=== PATIENT | male | born 1945 | race Caucasian/White ===

== ENCOUNTER 2017-03-06 01:00 | Inpatient (IN) | payer OTHER, MEDICARE ==
[~2017-03-06] VITALS: Ht 185.4 cm; Wt 92.1 kg
[2017-03-06] VITALS (7 sets, daily range): BP systolic 108–151; BP diastolic 56–80
--- NOTE | 2017-03-06 06:15 | EKG ---
[facility] [address] [place] [address] Test Date: 2017-03-06 Test Time: 06:12:43 Pat Name: KALEB WEAVER Department: Room: 202 1 Gender: M Javascript Front End Developer: CECILLE : 1945 Requested By: CORAZON LOVELL Order Number: [id number] Reading MD: Measurements Intervals [place] Rate: 72 P: 34 CA: 152 QRS: 42 QRSD: 162 T: 150 QT: 476 QTc: 523 Interpretive Statements SINUS RHYTHM VENTRICULAR PREMATURE COMPLEX(ES) NON SPECIFIC INTRAVENTRICULAR BLOCK ABNORMAL ECG RI6.01 Unconfirmed report No previous ECG available for comparison
[2017-03-06] MEDS ORDERED: MAGNESIUM SULFATE 2GM 50 ML IV ONE (06:45)
[2017-03-06] MEDS ORDERED: fentaNYL PF VIAL 100 MCG/2 ML VIAL IV PRN (09:00)
[2017-03-06] MEDS ORDERED: ACETAMINOPHEN 325 MG TABLET. PO PRN (09:00)
[2017-03-06] MEDS ORDERED: ONDANSETRON PF 4 MG/2 ML VIAL. IV PRN (09:00)
[2017-03-06] MEDS ORDERED: MULT-246 PO (09:40)
[2017-03-06] MEDS ORDERED: UBID1CAP41 PO (09:40)
[2017-03-06] MEDS ORDERED: CHOL10003 PO (09:40)
[2017-03-06] MEDS ORDERED: TAMS0.4C97 PO (09:41)
[2017-03-06 09:47] LABS: BASO % 0 % (0-3); EOS % 1 % (0-3); HEMATOCRIT 39.8 % (39.0-53.0); HEMOGLOBIN 13.4 g/dL (13.0-17.5); LYMPH # 1.6 x10^3/uL (1.0-4.8); LYMPH % 18 % (24-48); MEAN CORPUSCULAR HEMOGLOBIN 32 pg (25-35); MEAN CORPUSCULAR HGB CONC 34 g/dL (31-37); MEAN CORPUSCULAR VOLUME 94 fL (79-100); MONO % 11 % (0-9); NEUT % 70 % (31-73); PLATELET COUNT 353 x10^3/uL (140-400); RED BLOOD COUNT 4.21 x10^6/uL (4.30-5.70); RED CELL DISTRIBUTION WIDTH 14.6 % (11.5-14.5); WHITE BLOOD COUNT 9.3 x10^3/uL (4.0-11.0)
[2017-03-06 09:56] LABS: CALCIUM 8.6 mg/dL (8.5-10.1); CREATININE 1.2 mg/dL (0.7-1.3); GFR 59.3; MAGNESIUM 2.5 mg/dL (1.8-2.4); POTASSIUM 4.1 mmol/L (3.5-5.1)
[2017-03-06] MEDS: LISINOPRIL 5 MG TABLET. PO SCH (10:00)
--- NOTE | 2017-03-06 10:17 | CONS ---
DATE OF CONSULTATION: 03/06/2017 DATE OF SERVICE: 03/06/2017 REASON FOR CONSULTATION: Dyspnea. HISTORY OF PRESENT ILLNESS: The patient is a 71-year-old gentleman without any significant past medical history who presents to the hospital in the setting of progressive dyspnea over the course of the last 6 months or so. In speaking with his , she reports that he had some dyspnea when they went to [place] several weeks ago. In speaking with the patient, he reports that over the course of the last 6 months, he has had aggressive decline in functional capacity and basically describes NYHA class 2-3 symptoms at baseline. He denies any associated palpitations, orthopnea, PND or lower extremity edema. He has not had any exertional angina or rest angina. He denies any prior cardiovascular interventions or evaluations. He was evaluated by his PCP and sent to Pulmonary and had an echocardiogram performed which revealed significant LV systolic dysfunction and he is yet to follow up with them at this time. PAST MEDICAL HISTORY: 1. Benign prostatic hypertrophy. 2. Chronic obstructive pulmonary disease (question). SOCIAL HISTORY: The patient is . He is a former . Currently, he works in the [employer] department at the [employer]. Denies any alcohol, tobacco or illicit drug use. FAMILY HISTORY: Noncontributory. REVIEW OF SYSTEMS: Negative for 10 out of 14 systems reviewed, unless otherwise mentioned above in HPI. ALLERGIES: MORPHINE. CURRENT CARDIOVASCULAR MEDICATIONS: None. PHYSICAL EXAMINATION: VITAL SIGNS: Afebrile, respiratory rate 14, blood pressure 108/52, pulse 73. GENERAL: He is alert and oriented, in no acute distress. HEAD AND NECK: Unremarkable. HEART: Regular rate and rhythm without any murmurs, rubs or gallops. LUNGS: Clear to auscultation bilaterally anteriorly. ABDOMEN: Soft, nontender, nondistended. EXTREMITIES: Without any clubbing, cyanosis or edema. 2+ radial and dorsalis pedis pulses. NEUROLOGIC: No focal deficits. MUSCULOSKELETAL: No trauma. LABORATORY DATA: EKG reveals sinus rhythm with left bundle branch block and occasional PVCs. Telemetry reveals nonsustained ventricular tachycardia and/or PAT with aberrancy. Cardiac enzymes are minimally elevated. Echocardiogram demonstrates significant LV systolic dysfunction with ejection fraction of 20% with anterior wall akinesis in aneurysmal segments. IMPRESSION: 1. Ischemic cardiomyopathy with likely prior LAD territory infarct. 2. Dyspnea and acute systolic heart failure. RECOMMENDATIONS: 1. Plan for cardiac catheterization tomorrow. 2. Start low dose aspirin and initiate on low dose MARGARET inhibitor therapy as tolerated. Consider beta phil upon discharge on an outpatient basis. 3. Nstemi - started statin therapy and Hep gtt. Continue serial enzymes. He will also need likely a temporary defibrillator in the form of a LifeVest due to his nonsustained VT episodes while admitted to the hospital. We will readdress his goals of care as at this present time, the patient and his wish to be DNR and therefore a defibrillator may not be appropriate from a fdc perspective with their goals of care. KAYODE ORTIZ MD DR: YAYA/mervat JOB#: [id number] / [id number] MERISSA
[2017-03-06] MEDS ORDERED: HEPARIN for IV BOLUS 10,000 UNIT/10 ML VIAL. IV PRN (10:30)
[2017-03-06] MEDS ORDERED: ANTI-COAG MONITOR BY PHARMACY. MC PRN (11:00)
--- NOTE | 2017-03-06 11:08 | PDOC1 ---
History and Physical Date of Admission Date of Admission DATE: 03/06/17 TIME: 11:02 Identification/Chief Complaint Chief Complaint soa Problems: Source Source: Caregiver, Chart review, Patient History of Present Illness History of Present Illness 71 y.o male who has pretty good ambulation given stated age, only past medical hx is prostate issues, was filling up a gas tank or doing something exertional last night at home (lives at home with ), then soa, severe enough had to go to [facility], Maybe some dizziness, no cp, denies diaphoresis, NO known CAD. NOn smoker, non drinker, clean lifestyle, Trop second set, just called in 15, Cards plans of cardiac cath jules, heparin gtt today, Pt looks comfortable, EKG no STEMI, denies CP, ate breakfast 100% Creat 1,3 at [facility] all labs ok Past Medical History Renal/: Benign prostatic enlarg. Past Surgical History Past Surgical History: No pertinent history Family History Family History: Hypertension Social History Smoke: No ALCOHOL: none Drugs: None Current Medications Current Medications Current Medications Magnesium Sulfate/ Dextrose 50 ml @ 25 mls/hr 1X ONCE IV Last administered on 03/06/17t 06:45; Start 03/06/17 at 06:45; Stop 03/06/17 at 08:44; Status DC Ondansetron HCl (Zofran) 4 mg PRN Q6HRS PRN IV NAUSEA/VOMITING; Start 03/06/17 at 09:00 Acetaminophen (Tylenol) 650 mg PRN Q6HRS PRN PO pain; Start 03/06/17 at 09:00 Fentanyl Citrate (Fentanyl 2ml Vial) 25 mcg PRN Q2HR PRN IV PAIN; Start at 09:00 Aspirin (Ecotrin) 81 mg DAILYWBKFT PO ; Start 03/06/17 at 10:00 Lisinopril (Prinivil) 5 mg DAILY PO ; Start 03/06/17 at 10:00 Heparin Sodium/ Dextrose 500 ml @ 0 mls/hr CONT PRN IV SEE I/O RECORD; Start at 10:30 Heparin Sodium (Porcine) (Heparin Sodium) 2,350 unit PRN Q6HRS PRN IV FOR UFH LEVEL LESS THAN 0.2; Start 03/06/17 at 10:30 Atorvastatin Calcium (Lipitor) 40 mg QHS PO ; Start 03/06/17 at 21:00 Info (Anti-Coagulation Monitoring By Pharmacy) 1 each PRN DAILY PRN MC SEE COMMENTS; Start 03/06/17 at 11:00 Active Scripts Active Reported Flomax (Tamsulosin Hcl) 0.4 Mg Cap.er.24h 0.4 Mg PO DAILY Multi-Vitamin Daily (Multivitamin) 1 Each Tablet 1 Each PO Vitamin D3 (Cholecalciferol (Vitamin D3)) 1,000 Unit Tablet 1,000 Unit PO Co Q-10 100 Mg Softgel (Ubidecarenone/Vit E Acetate) 1 Each Capsule 1 Each PO Allergies Allergies: Coded Allergies: morphine (Verified Allergy, Unknown, 03/06/17) ROS Review of System denies, just SOA on HPI Physical Exam General: Alert, Oriented X3, Cooperative, No acute distress HEENT: Atraumatic, PERRLA Lungs: Clear to auscultation, Normal air movement Heart: S1S2, RRR, no thrills, no rubs, no gallops Cardiovascular: S1, S2 Abdomen: Normal bowel sounds, Soft, No tenderness, No hepatosplenomegaly, No masses Male Genitals Exam: normal genitalia, normal prostate Rectal Exam: not examined PELVIC: Nml ext genitalia Extremities: No clubbing, No cyanosis, No edema, Normal pulses, No tenderness/ swelling Skin: No rashes, No breakdown, No significant lesion Neuro: Normal gait, Normal speech, Strength at 5/5 X4 ext, Normal tone, Sensation intact, Cranial nerves 3-12 NL, Reflexes 2+ Psych/Mental Status: Mental status NL, Mood NL Vitals Vitals Vital Signs Date Time Temp Pulse Resp B/P (MAP) Pulse Ox O2 Delivery O2 Flow Rate FiO2 03/06/17 10:39 98.1 79 20 111/57 (75) 97 Room Air 98.1 Labs Labs Laboratory Tests Test 03/06/17 08:40 White Blood Count 9.3 x10^3/uL (4.0-11.0) Red Blood Count 4.21 x10^6/uL (4.30-5.70) Hemoglobin 13.4 g/dL (13.0-17.5) Hematocrit 39.8 % (39.0-53.0) Mean Corpuscular Volume 94 fL (79-100) Mean Corpuscular Hemoglobin 32 pg (25-35) Mean Corpuscular Hemoglobin Concent 34 g/dL (31-37) Red Cell Distribution Width 14.6 % (11.5-14.5) Platelet Count 353 x10^3/uL (140-400) Neutrophils (%) (Auto) 70 % (31-73) Lymphocytes (%) (Auto) 18 % (24-48) Monocytes (%) (Auto) 11 % (0-9) Eosinophils (%) (Auto) 1 % (0-3) Basophils (%) (Auto) 0 % (0-3) Neutrophils # (Auto) 6.5 x10^3uL (1.8-7.7) Lymphocytes # (Auto) 1.6 x10^3/uL (1.0-4.8) Monocytes # (Auto) 1.0 x10^3/uL (0.0-1.1) Eosinophils # (Auto) 0.1 x10^3/uL (0.0-0.7) Basophils # (Auto) 0.0 x10^3/uL (0.0-0.2) Sodium Level 142 mmol/L (136-145) Potassium Level 4.1 mmol/L (3.5-5.1) Chloride Level 105 mmol/L (98-107) Carbon Dioxide Level 27 mmol/L (21-32) Anion Gap 10 (6-14) Blood Urea Nitrogen 13 mg/dL (8-26) Creatinine 1.2 mg/dL (0.7-1.3) Estimated GFR (Cockcroft-Gault) 59.3 Glucose Level 95 mg/dL (70-99) Calcium Level 8.6 mg/dL (8.5-10.1) Magnesium Level 2.5 mg/dL (1.8-2.4) Troponin I Quantitative 15.209 ng/mL (0.000-0.055) Thyroid Stimulating Hormone (TSH) 1.165 uIU/mL (0.358-3.74) Laboratory Tests Test 03/06/17 08:40 White Blood Count 9.3 x10^3/uL (4.0-11.0) Red Blood Count 4.21 x10^6/uL (4.30-5.70) Hemoglobin 13.4 g/dL (13.0-17.5) Hematocrit 39.8 % (39.0-53.0) Mean Corpuscular Volume 94 fL (79-100) Mean Corpuscular Hemoglobin 32 pg (25-35) Mean Corpuscular Hemoglobin Concent 34 g/dL (31-37) Red Cell Distribution Width 14.6 % (11.5-14.5) Platelet Count 353 x10^3/uL (140-400) Neutrophils (%) (Auto) 70 % (31-73) Lymphocytes (%) (Auto) 18 % (24-48) Monocytes (%) (Auto) 11 % (0-9) Eosinophils (%) (Auto) 1 % (0-3) Basophils (%) (Auto) 0 % (0-3) Neutrophils # (Auto) 6.5 x10^3uL (1.8-7.7) Lymphocytes # (Auto) 1.6 x10^3/uL (1.0-4.8) Monocytes # (Auto) 1.0 x10^3/uL (0.0-1.1) Eosinophils # (Auto) 0.1 x10^3/uL (0.0-0.7) Basophils # (Auto) 0.0 x10^3/uL (0.0-0.2) Sodium Level 142 mmol/L (136-145) Potassium Level 4.1 mmol/L (3.5-5.1) Chloride Level 105 mmol/L (98-107) Carbon Dioxide Level 27 mmol/L (21-32) Anion Gap 10 (6-14) Blood Urea Nitrogen 13 mg/dL (8-26) Creatinine 1.2 mg/dL (0.7-1.3) Estimated GFR (Cockcroft-Gault) 59.3 Glucose Level 95 mg/dL (70-99) Calcium Level 8.6 mg/dL (8.5-10.1) Magnesium Level 2.5 mg/dL (1.8-2.4) Troponin I Quantitative 15.209 ng/mL (0.000-0.055) Thyroid Stimulating Hormone (TSH) 1.165 uIU/mL (0.358-3.74) VTE Prophylaxis Ordered VTE Prophylaxis Devices: Yes VTE Pharmacological Prophylaxi: Yes Assessment/Plan Assessment/Plan 1. NSTEMI 2. BPH 3. Geriatric 4. BENJAMIN PLAN: Admit CVC IVF x 1 L in prep for LHC jules (creat 1,3) Rpt Trops BMP jules Heparin gtt ACS protocol PARK Stool softener NPO post MN Dw pt and RN ALKA Nicole MD Mar 06, 2017 11:08
[2017-03-06] MEDS ORDERED: IV NORMAL SALINE 1000ML BAG 1,000 ML IV ONE (11:15)
[2017-03-06] MEDS ORDERED: NITROGLYCERIN SUBLINGUAL 0.4 MG BOTTLE OF 25. SL PRN (11:15)
[2017-03-06 11:32] LABS: INR 1.2 (0.8-1.1); PROTHROMBIN TIME PATIENT 14.5 SEC (11.7-14.0)
[2017-03-06] MEDS ORDERED: TAMSULOSIN 0.4 MG CAP.ER.24H. PO SCH (12:00)
[2017-03-06] MEDS: MULTIVITAMIN with MINERAL TABLET. PO SCH (12:00)
[2017-03-06] MEDS: CHOLECALCIFEROL (VITAMIN D3) 1,000 UNIT TABLET PO SCH (12:00)
[2017-03-06] MEDS: ASPIRIN ENTERIC COATED 81 MG TABLET.DR. PO SCH (12:00)
[2017-03-06] MEDS: DOCUSATE SODIUM 100 MG CAPSULE. PO SCH (12:00)
[2017-03-06] MEDS: HEPARIN 25,000UTS/500ML PREMIX 500 ML IV PRN (12:03)
[2017-03-06 16:56] LABS: CKMB MASS 60.6 ng/mL (0.0-3.6)
[2017-03-06] MEDS: TAMSULOSIN 0.4 MG CAP.ER.24H. PO SCH (20:02)
[2017-03-06] MEDS: ATORVASTATIN CALCIUM 40 MG TABLET. PO SCH (20:03)
[2017-03-07] VITALS (13 sets, daily range): BP systolic 105–147; BP diastolic 59–70
[2017-03-07 04:25] LABS: HEMATOCRIT 38.4 % (39.0-53.0); HEMOGLOBIN 12.7 g/dL (13.0-17.5); RED CELL DISTRIBUTION WIDTH 14.9 % (11.5-14.5); WHITE BLOOD COUNT 8.6 x10^3/uL (4.0-11.0)
[2017-03-07 04:48] LABS: CREATININE 1.2 mg/dL (0.7-1.3); GFR 59.3; POTASSIUM 3.5 mmol/L (3.5-5.1)
[2017-03-07 04:52] LABS: CHOLESTEROL/HDL RATIO 2.7
[2017-03-07] MEDS: ASPIRIN ENTERIC COATED 81 MG TABLET.DR. PO SCH (08:52)
[2017-03-07] MEDS: HEPARIN 25,000UTS/500ML PREMIX 500 ML IV PRN (08:58)
[2017-03-07] MEDS: DOCUSATE SODIUM 100 MG CAPSULE. PO SCH (09:00)
[2017-03-07] MEDS: CHOLECALCIFEROL (VITAMIN D3) 1,000 UNIT TABLET PO SCH (09:00)
[2017-03-07] MEDS: MULTIVITAMIN with MINERAL TABLET. PO SCH (09:00)
[2017-03-07] MEDS: LISINOPRIL 5 MG TABLET. PO SCH (09:00)
--- NOTE | 2017-03-07 09:45 | PDOC ---
PROGRESS NOTES Chief Complaint Chief Complaint Assessment/Plan 1. NSTEMI 2. BPH 3. Geriatric 4. BENJAMIN History of Present Illness History of Present Illness Trop peaks at 20 today On heparin gtt NO CP, but some mild SOA NPO, planned for cardiac cath later Clean lifestyle, only BPH, no personal hx CAD PLAN: [facility] later Follow cards recs Allergic to morphine Stool softener on Vitals Vitals Vital Signs Date Time Temp Pulse Resp B/P (MAP) Pulse Ox O2 Delivery O2 Flow Rate FiO2 03/07/17 06:37 98.2 66 16 105/59 (74) 95 Nasal Cannula 2.0 98.2 Physical Exam General: Alert, Oriented X3, Cooperative, No acute distress Abdomen: Normal bowel sounds, Soft, No tenderness, No hepatosplenomegaly, No masses Extremities: No clubbing, No cyanosis, No edema, Normal pulses, No tenderness/ swelling Skin: No rashes, No breakdown, No significant lesion Labs LABS Laboratory Tests Test 03/06/17 10:24 03/06/17 10:30 03/06/17 11:05 03/06/17 16:00 Prothrombin Time 14.5 SEC (11.7-14.0) Prothromb Time International Ratio 1.2 (0.8-1.1) Activated Partial Thromboplast Time 36 SEC (24-38) Troponin I Quantitative 18.299 ng/mL (0.000-0.055) 20.284 ng/mL (0.000-0.055) Creatine Kinase 390 U/L (39-308) Creatine Kinase MB (Mass) 60.6 ng/mL (0.0-3.6) Creatine Kinase MB Relative Index 15.5 % (0-4) Test 03/06/17 18:10 03/07/17 01:15 03/07/17 03:45 03/07/17 07:10 Heparin Anti-Xa Act, Unfractionated 0.22 IU/mL (0.30-0.70) 0.34 IU/mL (0.30-0.70) 0.33 IU/mL (0.30-0.70) White Blood Count 8.6 x10^3/uL (4.0-11.0) Red Blood Count 4.00 x10^6/uL (4.30-5.70) Hemoglobin 12.7 g/dL (13.0-17.5) Hematocrit 38.4 % (39.0-53.0) Mean Corpuscular Volume 96 fL (79-100) Mean Corpuscular Hemoglobin 32 pg (25-35) Mean Corpuscular Hemoglobin Concent 33 g/dL (31-37) Red Cell Distribution Width 14.9 % (11.5-14.5) Platelet Count 320 x10^3/uL (140-400) Sodium Level 141 mmol/L (136-145) Potassium Level 3.5 mmol/L (3.5-5.1) Chloride Level 106 mmol/L (98-107) Carbon Dioxide Level 27 mmol/L (21-32) Anion Gap 8 (6-14) Blood Urea Nitrogen 12 mg/dL (8-26) Creatinine 1.2 mg/dL (0.7-1.3) Estimated GFR (Cockcroft-Gault) 59.3 Glucose Level 92 mg/dL (70-99) Calcium Level 8.0 mg/dL (8.5-10.1) Triglycerides Level 28 mg/dL (0-150) Cholesterol Level 122 mg/dL (0-200) LDL Cholesterol, Calculated 70 mg/dL (0-100) VLDL Cholesterol, Calculated 6 mg/dL (0-40) Non-HDL Cholesterol Calculated 76 mg/dL (0-129) HDL Cholesterol 46 mg/dL (40-60) Cholesterol/HDL Ratio 2.7 Review of Systems Review of Systems SOA, no CP Comment Review of Relevant I have reviewed the following items kimberly (where applicable) has been applied. Labs Laboratory Tests Test 03/06/17 08:40 03/06/17 10:24 03/06/17 10:30 03/06/17 11:05 White Blood Count 9.3 x10^3/uL (4.0-11.0) Red Blood Count 4.21 x10^6/uL (4.30-5.70) Hemoglobin 13.4 g/dL (13.0-17.5) Hematocrit 39.8 % (39.0-53.0) Mean Corpuscular Volume 94 fL (79-100) Mean Corpuscular Hemoglobin 32 pg (25-35) Mean Corpuscular Hemoglobin Concent 34 g/dL (31-37) Red Cell Distribution Width 14.6 % (11.5-14.5) Platelet Count 353 x10^3/uL (140-400) Neutrophils (%) (Auto) 70 % (31-73) Lymphocytes (%) (Auto) 18 % (24-48) Monocytes (%) (Auto) 11 % (0-9) Eosinophils (%) (Auto) 1 % (0-3) Basophils (%) (Auto) 0 % (0-3) Neutrophils # (Auto) 6.5 x10^3uL (1.8-7.7) Lymphocytes # (Auto) 1.6 x10^3/uL (1.0-4.8) Monocytes # (Auto) 1.0 x10^3/uL (0.0-1.1) Eosinophils # (Auto) 0.1 x10^3/uL (0.0-0.7) Basophils # (Auto) 0.0 x10^3/uL (0.0-0.2) Sodium Level 142 mmol/L (136-145) Potassium Level 4.1 mmol/L (3.5-5.1) Chloride Level 105 mmol/L (98-107) Carbon Dioxide Level 27 mmol/L (21-32) Anion Gap 10 (6-14) Blood Urea Nitrogen 13 mg/dL (8-26) Creatinine 1.2 mg/dL (0.7-1.3) Estimated GFR (Cockcroft-Gault) 59.3 Glucose Level 95 mg/dL (70-99) Calcium Level 8.6 mg/dL (8.5-10.1) Magnesium Level 2.5 mg/dL (1.8-2.4) Troponin I Quantitative 15.209 ng/mL (0.000-0.055) 18.299 ng/mL (0.000-0.055) Thyroid Stimulating Hormone (TSH) 1.165 uIU/mL (0.358-3.74) Prothrombin Time 14.5 SEC (11.7-14.0) Prothromb Time International Ratio 1.2 (0.8-1.1) Activated Partial Thromboplast Time 36 SEC (24-38) Test 03/06/17 16:00 03/06/17 18:10 03/07/17 01:15 03/07/17 03:45 Creatine Kinase 390 U/L (39-308) Creatine Kinase MB (Mass) 60.6 ng/mL (0.0-3.6) Creatine Kinase MB Relative Index 15.5 % (0-4) Troponin I Quantitative 20.284 ng/mL (0.000-0.055) Heparin Anti-Xa Act, Unfractionated 0.22 IU/mL (0.30-0.70) 0.34 IU/mL (0.30-0.70) White Blood Count 8.6 x10^3/uL (4.0-11.0) Red Blood Count 4.00 x10^6/uL (4.30-5.70) Hemoglobin 12.7 g/dL (13.0-17.5) Hematocrit 38.4 % (39.0-53.0) Mean Corpuscular Volume 96 fL (79-100) Mean Corpuscular Hemoglobin 32 pg (25-35) Mean Corpuscular Hemoglobin Concent 33 g/dL (31-37) Red Cell Distribution Width 14.9 % (11.5-14.5) Platelet Count 320 x10^3/uL (140-400) Sodium Level 141 mmol/L (136-145) Potassium Level 3.5 mmol/L (3.5-5.1) Chloride Level 106 mmol/L (98-107) Carbon Dioxide Level 27 mmol/L (21-32) Anion Gap 8 (6-14) Blood Urea Nitrogen 12 mg/dL (8-26) Creatinine 1.2 mg/dL (0.7-1.3) Estimated GFR (Cockcroft-Gault) 59.3 Glucose Level 92 mg/dL (70-99) Calcium Level 8.0 mg/dL (8.5-10.1) Triglycerides Level 28 mg/dL (0-150) Cholesterol Level 122 mg/dL (0-200) LDL Cholesterol, Calculated 70 mg/dL (0-100) VLDL Cholesterol, Calculated 6 mg/dL (0-40) Non-HDL Cholesterol Calculated 76 mg/dL (0-129) HDL Cholesterol 46 mg/dL (40-60) Cholesterol/HDL Ratio 2.7 Test 03/07/17 07:10 Heparin Anti-Xa Act, Unfractionated 0.33 IU/mL (0.30-0.70) Laboratory Tests Test 03/06/17 10:24 03/06/17 10:30 03/06/17 11:05 03/06/17 16:00 Prothrombin Time 14.5 SEC (11.7-14.0) Prothromb Time International Ratio 1.2 (0.8-1.1) Activated Partial Thromboplast Time 36 SEC (24-38) Troponin I Quantitative 18.299 ng/mL (0.000-0.055) 20.284 ng/mL (0.000-0.055) Creatine Kinase 390 U/L (39-308) Creatine Kinase MB (Mass) 60.6 ng/mL (0.0-3.6) Creatine Kinase MB Relative Index 15.5 % (0-4) Test 03/06/17 18:10 03/07/17 01:15 03/07/17 03:45 03/07/17 07:10 Heparin Anti-Xa Act, Unfractionated 0.22 IU/mL (0.30-0.70) 0.34 IU/mL (0.30-0.70) 0.33 IU/mL (0.30-0.70) White Blood Count 8.6 x10^3/uL (4.0-11.0) Red Blood Count 4.00 x10^6/uL (4.30-5.70) Hemoglobin 12.7 g/dL (13.0-17.5) Hematocrit 38.4 % (39.0-53.0) Mean Corpuscular Volume 96 fL (79-100) Mean Corpuscular Hemoglobin 32 pg (25-35) Mean Corpuscular Hemoglobin Concent 33 g/dL (31-37) Red Cell Distribution Width 14.9 % (11.5-14.5) Platelet Count 320 x10^3/uL (140-400) Sodium Level 141 mmol/L (136-145) Potassium Level 3.5 mmol/L (3.5-5.1) Chloride Level 106 mmol/L (98-107) Carbon Dioxide Level 27 mmol/L (21-32) Anion Gap 8 (6-14) Blood Urea Nitrogen 12 mg/dL (8-26) Creatinine 1.2 mg/dL (0.7-1.3) Estimated GFR (Cockcroft-Gault) 59.3 Glucose Level 92 mg/dL (70-99) Calcium Level 8.0 mg/dL (8.5-10.1) Triglycerides Level 28 mg/dL (0-150) Cholesterol Level 122 mg/dL (0-200) LDL Cholesterol, Calculated 70 mg/dL (0-100) VLDL Cholesterol, Calculated 6 mg/dL (0-40) Non-HDL Cholesterol Calculated 76 mg/dL (0-129) HDL Cholesterol 46 mg/dL (40-60) Cholesterol/HDL Ratio 2.7 Medications Current Medications Magnesium Sulfate/ Dextrose 50 ml @ 25 mls/hr 1X ONCE IV Last administered on 03/06/17 06:45; Start 03/06/17 at 06:45; Stop 03/06/17 at 08:44; Status DC Ondansetron HCl (Zofran) 4 mg PRN Q6HRS PRN IV NAUSEA/VOMITING; Start 03/06/17 at 09:00 Acetaminophen (Tylenol) 650 mg PRN Q6HRS PRN PO pain; Start 03/06/17 at 09:00 Fentanyl Citrate (Fentanyl 2ml Vial) 25 mcg PRN Q2HR PRN IV PAIN; Start at 09:00 Aspirin (Ecotrin) 81 mg DAILYWBKFT PO Last administered on 03/07/17 08:52; Start 03/06/17 at 10:00 Lisinopril (Prinivil) 5 mg DAILY PO ; Start 03/06/17 at 10:00 Heparin Sodium/ Dextrose 500 ml @ 0 mls/hr CONT PRN IV SEE I/O RECORD Last administered on 03/07/17 08:58; Start 03/06/17 at 10:30 Heparin Sodium (Porcine) (Heparin Sodium) 2,350 unit PRN Q6HRS PRN IV FOR UFH LEVEL LESS THAN 0.2; Start 03/06/17 at 10:30 Atorvastatin Calcium (Lipitor) 40 mg QHS PO Last administered on 03/06/17 20: 03; Start 03/06/17 at 21:00 Info (Anti-Coagulation Monitoring By Pharmacy) 1 each PRN DAILY PRN MC SEE COMMENTS; Start 03/06/17 at 11:00 Vitamin D (Vitamin D3) 1,000 unit DAILY PO Last administered on 03/06/17 12:00 ; Start 03/06/17 at 12:00 Tamsulosin HCl (Flomax) 0.4 mg DAILY PO ; Start 03/06/17 at 12:00; Stop at 12:10; Status DC Multivitamins (Thera M Plus) 1 tab DAILY PO Last administered on 03/06/17 12: 00; Start 03/06/17 at 12:00 Nitroglycerin (Nitrostat) 0.4 mg PRN Q5MIN PRN SL CHEST PAIN; Start 03/06/17 at 11:15 Docusate Sodium (Colace) 100 mg DAILY PO ; Start 03/06/17 at 12:00 Sodium Chloride 1,000 ml @ 100 mls/hr 1X ONCE IV Last administered on 12:00; Start 03/06/17 at 11:15; Stop 03/06/17 at 21:14; Status DC Tamsulosin HCl (Flomax) 0.4 mg HS PO Last administered on 03/06/17 20:02; Start 03/06/17 at 21:00 Active Scripts Active Reported Flomax (Tamsulosin Hcl) 0.4 Mg Cap.er.24h 0.4 Mg PO DAILY Multi-Vitamin Daily (Multivitamin) 1 Each Tablet 1 Each PO Vitamin D3 (Cholecalciferol (Vitamin D3)) 1,000 Unit Tablet 1,000 Unit PO Co Q-10 100 Mg Softgel (Ubidecarenone/Vit E Acetate) 1 Each Capsule 1 Each PO Vitals/I & O Vital Sign - Last 24 Hours 03/06/17 03/06/17 03/06/17 03/06/17 10:39 14:52 19:35 20:00 Temp 98.1 98.0 98.4 98.1 98.0 98.4 Pulse 79 74 75 Resp 20 19 18 B/P (MAP) 111/57 (75) 111/59 (76) 128/71 (90) Pulse Ox 97 93 O2 Delivery Room Air Room Air Room Air Room Air 03/06/17 03/06/17 03/07/17 03/07/17 21:18 22:34 02:45 06:37 Temp 97.7 98.4 98.2 97.7 98.4 98.2 Pulse 72 73 66 Resp 16 16 16 B/P (MAP) 113/57 (75) 115/59 (77) 105/59 (74) Pulse Ox 97 90 95 O2 Delivery Room Air Room Air Room Air Nasal Cannula O2 Flow Rate 2.0 ALKA ELLIS MD Mar 07, 2017 09:45
[2017-03-07] MEDS ORDERED: HEPARIN for ARTERIAL LINE 1,500 ML ONE (14:01)
[2017-03-07] MEDS ORDERED: IOHEXOL 300 MG/ML 100ML VIAL. ONE (14:01)
[2017-03-07] MEDS ORDERED: LIDOCAINE 2% 20 ML VIAL. ONE (14:01)
[2017-03-07] MEDS ORDERED: MIDAZOLAM HCL/PF 2 MG/2 ML VIAL. ONE (14:54)
[2017-03-07] MEDS ORDERED: VERAPAMIL 5 MG/2 ML VIAL. ONE (14:54)
[2017-03-07] MEDS ORDERED: NITROGLYCERIN 200 MCG/2 ML SYRINGE FOR CATH/VASC LAB. ONE (14:56)
[2017-03-07] MEDS ORDERED: TIROFIBAN 12.5MG -0.9% NS 250 ML IV ONE (15:23)
[2017-03-07] MEDS ORDERED: HEPARIN for IV BOLUS 10,000 UNIT/10 ML VIAL. IV ONE (15:30)
[2017-03-07] MEDS ORDERED: LIDOCAINE 2% 20 ML VIAL. IJ ONE (15:30)
[2017-03-07] MEDS ORDERED: VERAPAMIL 5 MG/2 ML VIAL. IART ONE (15:30)
[2017-03-07] MEDS ORDERED: TIROFIBAN 12.5MG -0.9% NS 250 ML IV PRN (15:30)
[2017-03-07] MEDS ORDERED: fentaNYL PF VIAL 100 MCG/2 ML VIAL IV ONE (15:30)
[2017-03-07] MEDS ORDERED: HEPARIN for IV BOLUS 10,000 UNIT/10 ML VIAL. IART ONE (15:30)
[2017-03-07] MEDS ORDERED: NITROGLYCERIN 200 MCG/2 ML SYRINGE FOR CATH/VASC LAB. IART ONE (15:30)
[2017-03-07] MEDS ORDERED: IOHEXOL 300 MG/ML 100ML VIAL. IART ONE (15:30)
[2017-03-07] MEDS ORDERED: MIDAZOLAM HCL/PF 2 MG/2 ML VIAL. IV ONE (15:30)
[2017-03-07] MEDS ORDERED: CLOPIDOGREL BISULFATE 75 MG TABLET PO ONE (15:30)
--- NOTE | 2017-03-07 18:35 | PDOC ---
Provider Note Provider Note s/p cath 90% RCA stenosis. s/p 4.0/18 bare metal stent LVEDP 30 mm hg. Medical therapy to include plavix x 1 year Full report to follow. KAYODE ORTIZ MD Mar 07, 2017 18:35
[2017-03-07] MEDS: TAMSULOSIN 0.4 MG CAP.ER.24H. PO SCH (20:37)
[2017-03-07] MEDS: ATORVASTATIN CALCIUM 40 MG TABLET. PO SCH (20:37)
[2017-03-08 03:30] VITALS: BP 115/62
[2017-03-08 07:45] VITALS: BP 114/61
[2017-03-08] MEDS ORDERED: CLOPIDOGREL BISULFATE 75 MG TABLET PO SCH (08:00)
[2017-03-08] MEDS: DOCUSATE SODIUM 100 MG CAPSULE. PO SCH (09:00)
[2017-03-08] MEDS: MULTIVITAMIN with MINERAL TABLET. PO SCH (09:39)
[2017-03-08] MEDS: CHOLECALCIFEROL (VITAMIN D3) 1,000 UNIT TABLET PO SCH (09:39)
[2017-03-08] MEDS: LISINOPRIL 5 MG TABLET. PO SCH (09:40)
[2017-03-08] MEDS: ASPIRIN ENTERIC COATED 81 MG TABLET.DR. PO SCH (09:40)
--- NOTE | 2017-03-08 09:46 | PDOC ---
CARDIO Progress Notes Date and Time Date of Service 03/08/17 Time of Evaluation 0935 Subjective Subjective: No Chest Pain, No shortness of breath Vitals Vitals Vital Signs Date Time Temp Pulse Resp B/P (MAP) Pulse Ox O2 Delivery O2 Flow Rate FiO2 03/08/17 07:45 98.3 63 12 114/61 (78) 97 Room Air 98.3 03/08/17 03:30 2.0 Weight Weight [ ] Laboratory Labs Laboratory Tests Test 03/07/17 15:20 Activated Clotting Time 184 sec (92-181) Physical Exam HEENT: Neck Supple W Full Motion Chest: Symmetric LUNGS: Clear to Auscultation, Other (diminished bases ) Heart: S1S2, RRR, murmurs (2/6 systolic murmur) Abdomen: Soft N/T Extremities: No Edema, Other (right radial arteriotomy site soft, clean, and dry. No erythema, ecchymosis, or hematoma present. Neurovascular status intact) Neurology: alert, oriented, follow commands Assessment Assessment 1. NSTEMI 2. CAD s/p PCI/BMS to RCA 3. Acute systolic HF with ICM; LVEF 20% Recommendations Risk stratification modification Cardiac rehab referral Secondary prevention measures including DAPT with ASA and Plavix (preferably for 1 year). No BB due to marginal pressures. Consider addition upon discharge on an outpatient basis. Given severe cardiomyopathy and mild ectopy noted on telemetry, discussed option of LifeVest in prevention of SCD, with patient and , and they would like to defer as he is a DNR and wishes not to be defibrillated or resuscitated. F/u in our office with Dr. Meadows in 4 weeks as scheduled. Reassess LV function on an outpatient basis JOSUE JARQUIN APRN Mar 08, 2017 09:46
[2017-03-08 11:02] VITALS: BP 116/61
--- NOTE | 2017-03-08 11:07 | PDOC ---
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 BPH 4. GEritaric 5. BENJAMIN resolved with IVF, vasomotor History of Present Illness History of Present Illness [facility] results noted 1 BMS to RCA EF 20% Advised ASA and plavix at least 1 yr by cards Discussed with pt still reports some SOA - EF low Supposed to be on CPAP at night, not wearing bec of intolerance/discomfort Plan: PEr cards NEw cardiac meds for stent and low EF PT/OT NO reports of desatn - is SOA bec of lOW EF dw RN Nnamdi Vitals Vitals Vital Signs Date Time Temp Pulse Resp B/P (MAP) Pulse Ox O2 Delivery O2 Flow Rate FiO2 03/08/17 11:02 98.2 72 13 116/61 (79) 97 Room Air 98.2 03/08/17 03:30 2.0 Physical Exam General: Alert, Oriented X3, Cooperative, No acute distress Abdomen: Normal bowel sounds, Soft, No tenderness, No hepatosplenomegaly, No masses Extremities: No clubbing, No cyanosis, No edema, Normal pulses, No tenderness/ swelling Skin: No rashes, No breakdown, No significant lesion Labs LABS Laboratory Tests Test 03/07/17 15:20 Activated Clotting Time 184 sec (92-181) Review of Systems Review of Systems SOA Comment Review of Relevant I have reviewed the following items kimberly (where applicable) has been applied. Labs Laboratory Tests Test 03/06/17 11:05 03/06/17 16:00 03/06/17 18:10 03/07/17 01:15 Troponin I Quantitative 18.299 ng/mL (0.000-0.055) 20.284 ng/mL (0.000-0.055) Creatine Kinase 390 U/L (39-308) Creatine Kinase MB (Mass) 60.6 ng/mL (0.0-3.6) Creatine Kinase MB Relative Index 15.5 % (0-4) Heparin Anti-Xa Act, Unfractionated 0.22 IU/mL (0.30-0.70) 0.34 IU/mL (0.30-0.70) Test 03/07/17 03:45 03/07/17 07:10 03/07/17 15:20 White Blood Count 8.6 x10^3/uL (4.0-11.0) Red Blood Count 4.00 x10^6/uL (4.30-5.70) Hemoglobin 12.7 g/dL (13.0-17.5) Hematocrit 38.4 % (39.0-53.0) Mean Corpuscular Volume 96 fL (79-100) Mean Corpuscular Hemoglobin 32 pg (25-35) Mean Corpuscular Hemoglobin Concent 33 g/dL (31-37) Red Cell Distribution Width 14.9 % (11.5-14.5) Platelet Count 320 x10^3/uL (140-400) Sodium Level 141 mmol/L (136-145) Potassium Level 3.5 mmol/L (3.5-5.1) Chloride Level 106 mmol/L (98-107) Carbon Dioxide Level 27 mmol/L (21-32) Anion Gap 8 (6-14) Blood Urea Nitrogen 12 mg/dL (8-26) Creatinine 1.2 mg/dL (0.7-1.3) Estimated GFR (Cockcroft-Gault) 59.3 Glucose Level 92 mg/dL (70-99) Calcium Level 8.0 mg/dL (8.5-10.1) Triglycerides Level 28 mg/dL (0-150) Cholesterol Level 122 mg/dL (0-200) LDL Cholesterol, Calculated 70 mg/dL (0-100) VLDL Cholesterol, Calculated 6 mg/dL (0-40) Non-HDL Cholesterol Calculated 76 mg/dL (0-129) HDL Cholesterol 46 mg/dL (40-60) Cholesterol/HDL Ratio 2.7 Heparin Anti-Xa Act, Unfractionated 0.33 IU/mL (0.30-0.70) Activated Clotting Time 184 sec (92-181) Laboratory Tests Test 03/07/17 15:20 Activated Clotting Time 184 sec (92-181) Medications Current Medications Magnesium Sulfate/ Dextrose 50 ml @ 25 mls/hr 1X ONCE IV Last administered on 03/06/17t 06:45; Start 03/06/17 at 06:45; Stop 03/06/17 at 08:44; Status DC Ondansetron HCl (Zofran) 4 mg PRN Q6HRS PRN IV NAUSEA/VOMITING; Start 03/06/17 at 09:00 Acetaminophen (Tylenol) 650 mg PRN Q6HRS PRN PO pain; Start 03/06/17 at 09:00 Fentanyl Citrate (Fentanyl 2ml Vial) 25 mcg PRN Q2HR PRN IV PAIN; Start at 09:00 Aspirin (Ecotrin) 81 mg DAILYWBKFT PO Last administered on 03/08/17 09:40; Start 03/06/17 at 10:00 Lisinopril (Prinivil) 5 mg DAILY PO Last administered on 03/08/17 09:40; Start 03/06/17 at 10:00 Heparin Sodium/ Dextrose 500 ml @ 0 mls/hr CONT PRN IV SEE I/O RECORD Last administered on 03/07/17 08:58; Start 03/06/17 at 10:30; Stop 03/08/17 at 09:13 ; Status DC Heparin Sodium (Porcine) (Heparin Sodium) 2,350 unit PRN Q6HRS PRN IV FOR UFH LEVEL LESS THAN 0.2; Start 03/06/17 at 10:30; Stop 03/08/17 at 09:13; Status DC Atorvastatin Calcium (Lipitor) 40 mg QHS PO Last administered on 03/07/17 20: 37; Start 03/06/17 at 21:00 Info (Anti-Coagulation Monitoring By Pharmacy) 1 each PRN DAILY PRN MC SEE COMMENTS; Start 03/06/17 at 11:00; Stop 03/08/17 at 09:13; Status DC Vitamin D (Vitamin D3) 1,000 unit DAILY PO Last administered on 03/08/17 09:39 ; Start 03/06/17 at 12:00 Tamsulosin HCl (Flomax) 0.4 mg DAILY PO ; Start 03/06/17 at 12:00; Stop at 12:10; Status DC Multivitamins (Thera M Plus) 1 tab DAILY PO Last administered on 03/08/17 09: 39; Start 03/06/17 at 12:00 Nitroglycerin (Nitrostat) 0.4 mg PRN Q5MIN PRN SL CHEST PAIN; Start 03/06/17 at 11:15 Docusate Sodium (Colace) 100 mg DAILY PO ; Start 03/06/17 at 12:00 Sodium Chloride 1,000 ml @ 100 mls/hr 1X ONCE IV Last administered on 12:00; Start 03/06/17 at 11:15; Stop 03/06/17 at 21:14; Status DC Tamsulosin HCl (Flomax) 0.4 mg HS PO Last administered on 03/07/17 20:37; Start 03/06/17 at 21:00 Lidocaine HCl 20 ml STK-MED ONCE .ROUTE ; Start 03/07/17 at 14:01; Stop at 14:02; Status DC Heparin Sodium/ Sodium Chloride 1,500 ml @ As Directed STK-MED ONCE .ROUTE ; Start 03/07/17 at 14:01; Stop 03/07/17 at 14:02; Status DC Iohexol (Omnipaque 300 Mg/ml) 100 ml STK-MED ONCE .ROUTE ; Start 03/07/17 at 14: 01; Stop 03/07/17 at 14:02; Status DC Verapamil HCl (Verapamil) 5 mg STK-MED ONCE .ROUTE ; Start 03/07/17 at 14:54; Stop 03/07/17 at 14:55; Status DC Midazolam HCl (Versed) 2 mg STK-MED ONCE .ROUTE ; Start 03/07/17 at 14:54; Stop 03/07/17 at 14:55; Status DC Nitroglycerin (Nitroglycerin) 200 mcg STK-MED ONCE .ROUTE ; Start 03/07/17 at 14 :56; Stop 03/07/17 at 14:57; Status DC Tirofiban/Sodium Chloride 250 ml @ As Directed STK-MED ONCE IV ; Start at 15:23; Stop 03/07/17 at 15:24; Status DC Nitroglycerin (Nitroglycerin) 200 mcg 1X ONCE IART Last administered on 15:46; Start 03/07/17 at 15:30; Stop 03/07/17 at 15:41; Status DC Verapamil HCl (Verapamil) 2.5 mg 1X ONCE IART Last administered on 03/07/17 15:47; Start 03/07/17 at 15:30; Stop 03/07/17 at 15:41; Status DC Heparin Sodium (Porcine) (Heparin Sodium) 2,500 unit 1X ONCE IART Last administered on 03/07/17 15:46; Start 03/07/17 at 15:30; Stop 03/07/17 at 15:41 ; Status DC Heparin Sodium/ Sodium Chloride 1,000 unit 1X ONCE IART Last administered on 15:46; Start 03/07/17 at 15:30; Stop 03/07/17 at 15:41; Status DC Midazolam HCl (Versed) 2 mg 1X ONCE IV Last administered on 03/07/17 15:47; Start 03/07/17 at 15:30; Stop 03/07/17 at 15:41; Status DC Fentanyl Citrate (Fentanyl 2ml Vial) 100 mcg 1X ONCE IV Last administered on 15:48; Start 03/07/17 at 15:30; Stop 03/07/17 at 15:41; Status DC Iohexol (Omnipaque 300 Mg/ml) 100 ml 1X ONCE IART Last administered on 15:45; Start 03/07/17 at 15:30; Stop 03/07/17 at 15:41; Status DC Clopidogrel Bisulfate (Plavix) 600 mg 1X ONCE PO Last administered on 15:49; Start 03/07/17 at 15:30; Stop 03/07/17 at 15:41; Status DC Heparin Sodium (Porcine) (Heparin Sodium) 2,000 unit 1X ONCE IV Last administered on 03/07/17 15:49; Start 03/07/17 at 15:30; Stop 03/07/17 at 15:41 ; Status DC Lidocaine HCl 20 ml 1X ONCE IJ Last administered on 03/07/17 15:47; Start 05/13 at 15:30; Stop 03/07/17 at 15:41; Status DC Tirofiban/Sodium Chloride 250 ml @ 0 mls/hr CONT PRN IV PER PROTOCOL; Start 05/13 at 15:30; Stop 03/08/17 at 09:29; Status DC Clopidogrel Bisulfate (Plavix) 75 mg DAILYWBKFT PO Last administered on 09:38; Start 03/08/17 at 08:00 Active Scripts Active Reported Flomax (Tamsulosin Hcl) 0.4 Mg Cap.er.24h 0.4 Mg PO DAILY Multi-Vitamin Daily (Multivitamin) 1 Each Tablet 1 Each PO Vitamin D3 (Cholecalciferol (Vitamin D3)) 1,000 Unit Tablet 1,000 Unit PO Co Q-10 100 Mg Softgel (Ubidecarenone/Vit E Acetate) 1 Each Capsule 1 Each PO Vitals/I & O Vital Sign - Last 24 Hours 03/07/17 03/07/17 03/07/17 03/07/17 13:37 15:43 15:47 15:48 Temp 98.3 98.3 Pulse 71 90 85 Resp 12 14 16 B/P (MAP) 111/64 (80) Pulse Ox 97 92 92 O2 Delivery Room Air Room Air Room Air 03/07/17 03/07/17 03/07/17 03/07/17 16:15 16:30 16:45 17:00 Pulse 90 75 68 68 Resp 14 16 15 15 Pulse Ox 92 93 93 93 O2 Delivery Room Air Room Air Room Air Room Air 03/07/17 03/07/17 03/07/17 03/07/17 17:30 18:00 18:20 19:20 Temp 97.5 97.5 Pulse 66 66 79 Resp 15 15 17 22 B/P (MAP) 134/68 (90) Pulse Ox 94 94 92 96 O2 Delivery Room Air Room Air Room Air Room Air O2 Flow Rate 2.0 03/07/17 03/07/17 03/08/17 03/08/17 20:00 23:00 03:30 07:45 Temp 98.5 98.0 98.3 98.5 98.0 98.3 Pulse 74 70 63 Resp 16 16 12 B/P (MAP) 124/68 (86) 115/62 (79) 114/61 (78) Pulse Ox 93 99 97 O2 Delivery Room Air Room Air Nasal Cannula Room Air O2 Flow Rate 2.0 03/08/17 03/08/17 09:40 11:02 Temp 98.2 98.2 Pulse 63 72 Resp 13 B/P (MAP) 114/61 116/61 (79) Pulse Ox 97 O2 Delivery Room Air ALKA ELLIS MD Mar 08, 2017 11:07
[2017-03-08] MEDS ORDERED: TIROFIBAN 12.5MG -0.9% NS 250 ML IV PRN (12:45)
[2017-03-08] MEDS ORDERED: LISI-338 PO (14:59)
[2017-03-08] MEDS ORDERED: ASPI-482 PO (14:59)
[2017-03-08] MEDS ORDERED: ATOR40TA PO (14:59)
[2017-03-08] MEDS ORDERED: CLOP75TA PO (14:59)
--- NOTE | 2017-03-08 15:02 | PDOC3 ---
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 BPH 4. GEritaric 5. BENJAMIN resolved with IVF, vasomotor Brief Hospital Course Allergies Allergies Coded Allergies Type Severity Reaction Last Updated Verified morphine Allergy Unknown 03/06/17 Yes Vital Signs Vital Signs Date Time Temp Pulse Resp B/P (MAP) Pulse Ox O2 Delivery O2 Flow Rate FiO2 03/08/17 11:02 98.2 72 13 116/61 (79) 97 Room Air 98.2 03/08/17 03:30 2.0 Lab Results Laboratory Tests Test 03/06/17 16:00 03/06/17 18:10 03/07/17 01:15 03/07/17 03:45 Creatine Kinase 390 U/L (39-308) Creatine Kinase MB (Mass) 60.6 ng/mL (0.0-3.6) Creatine Kinase MB Relative Index 15.5 % (0-4) Troponin I Quantitative 20.284 ng/mL (0.000-0.055) Heparin Anti-Xa Act, Unfractionated 0.22 IU/mL (0.30-0.70) 0.34 IU/mL (0.30-0.70) White Blood Count 8.6 x10^3/uL (4.0-11.0) Red Blood Count 4.00 x10^6/uL (4.30-5.70) Hemoglobin 12.7 g/dL (13.0-17.5) Hematocrit 38.4 % (39.0-53.0) Mean Corpuscular Volume 96 fL (79-100) Mean Corpuscular Hemoglobin 32 pg (25-35) Mean Corpuscular Hemoglobin Concent 33 g/dL (31-37) Red Cell Distribution Width 14.9 % (11.5-14.5) Platelet Count 320 x10^3/uL (140-400) Sodium Level 141 mmol/L (136-145) Potassium Level 3.5 mmol/L (3.5-5.1) Chloride Level 106 mmol/L (98-107) Carbon Dioxide Level 27 mmol/L (21-32) Anion Gap 8 (6-14) Blood Urea Nitrogen 12 mg/dL (8-26) Creatinine 1.2 mg/dL (0.7-1.3) Estimated GFR (Cockcroft-Gault) 59.3 Glucose Level 92 mg/dL (70-99) Calcium Level 8.0 mg/dL (8.5-10.1) Triglycerides Level 28 mg/dL (0-150) Cholesterol Level 122 mg/dL (0-200) LDL Cholesterol, Calculated 70 mg/dL (0-100) VLDL Cholesterol, Calculated 6 mg/dL (0-40) Non-HDL Cholesterol Calculated 76 mg/dL (0-129) HDL Cholesterol 46 mg/dL (40-60) Cholesterol/HDL Ratio 2.7 Test 03/07/17 07:10 03/07/17 15:20 Heparin Anti-Xa Act, Unfractionated 0.33 IU/mL (0.30-0.70) Activated Clotting Time 184 sec (92-181) Laboratory Tests Test 03/07/17 15:20 Activated Clotting Time 184 sec (92-181) Brief Hospital Course Mr. Iglesias is a 71 old male with good IADLS, SOA while on exertion , trop peaked to 20 LHC showed RCA dse, 1 BMS to RCA, NOne smoker, clean living. New meds are plavix x 1 yr, ASA 81, ;ipitor 20 and lisinioril 5 qD. Ff up cards as instructed 2 notes today EF 20% Discharge Information Condition at Discharge: Improved, Stable Disposition/Orders: D/C to Home Scheduled Aspirin (Aspir 81), 1 TAB PO DAILY Tamsulosin Hcl (Flomax), 0.4 MG PO DAILY, (Reported) Miscellaneous Medications Cholecalciferol (Vitamin D3) (Vitamin D3), 1,000 UNIT PO, (Reported) Multivitamin (Multi-Vitamin Daily), 1 EACH PO, (Reported) Ubidecarenone/Vit E Acetate (Co Q-10 100 Mg Softgel), 1 EACH PO, (Reported) ALKA ELLIS MD Mar 08, 2017 15:02
--- NOTE | 2017-03-08 16:51 | CARD ---
APPROVED REPORT Procedure(s) performed: MODERATE SEDATION: 45 MINUTES Left heart catheterization, Coronary angiography, PTCA and PCI of the mid RCA HISTORY The patient is a 71 year-old male with a history of : previous AR, previous CHF, tobacco history() , hypertension, dyslipidemia. INDICATION The indication(s) include : non-STEMI Trop 22, dyspnea. PROCEDURE NARRATIVE The patient was brought electively to the cardiac catheterization lab. A timeout was performed confi rming the patient's name, date of , procedure, and site of procedure. All necessary personnel w ere wearing the appropriate protective equipment and radiation monitor devices. After explaining the risks and benefits of the procedure and alternatives, informed consent was obtained. (See nursing no fallon for medications administered). The right wrist was sterilely prepped and draped in the usual fas hion. The right wrist was infiltrated with 1 mL of 2% lidocaine for subcutaneous anesthesia. A 6 Fr ench Terumo glide sheath was inserted into the right radial artery without difficulty. Right and lef t coronary angiography was performed using a 6Fr TIG 4.0 catheter. HEMODYNAMICS: LVEDP 15 mm Hg No gradient on LV to aortic pullback. LEFT VENTRICULOGRAM: Deferred due to known EF of 25% CORONARY ANGIOGRAPHY: LM is a large caliber vessel with normal angiographic appearance. LAD is a large caliber vessel with normal angiographic appearance. D1/D2 are moderate caliber vessels with normal angiographic appearance. LCx is a moderate caliber non-dominant vessel with normal angiographic appearance. OM1 is a moderate caliber vessel with a proximal 30% stenosis. RCA is a large caliber dominant vessel with a focal 90% mid stenosis. RPDA and RPL are moderate caliber vessels with normal angiographic appearance. INTERVENTIONAL TECHNIQUE: The RCA was wired without difficulty and PTCA and PCI performed with equipment as noted below. Anticoagulation: Heparin and Tirofiban Guide: 6F JR4 Wires: 180cm Prowater Balloon: 3.5/12 Trek inflated to 12 cecy. Stent: 4.0/18 Vision bare metal stent. No acute complications noted. Left ventricular end diastolic pressure was obtained with a pigtail catheter and pullback was perform ed after left ventriculography. All catheter exchanges and advancements were performed over a guidew [place]. At case completion the right radial sheath was removed and a Terumo radial band was applied wit h 13 ml of air. The patient tolerated the procedure well and there were no immediate complications. Conclusion 1. One vessel CAD 2. Successful PCI of the mid RCA with implantation of 4.0/18 BMS. Recommendations ASA 81mg daily Plavix 75mg daily [facility]. Statin therapy.
--- NOTE | 2017-03-09 04:27 | ACF ---
Admission Forms Criteria MYOCARDIAL INFARCTION Clinical Indications for Admission to Inpatient Care (Place 'X' for any and all applicable criteria): Admission is indicated for 1 or more of the following (1)(2)(3)(4): [X]I. Acute OH [ ]II. Contraindications and/or Inappropriate clinical situations for Observational Care in patients with Myocardial Infarction, when ANY ONE of the following is required: [ ]a) Patient with High risk of cardiac embolism (e.g, patients with previous cardiac embolism, LVEF < 40%, age >75 and patients with prosthetic valve) 18 [ ]b) Patient with Moderate risk including DM patient, CAD and patient aged 65-75 18 [ ]c) Patient with any change in cardiac biomarker especially troponin should be managed as high risk in an inpatient setting 19 [ ]d) Physician judgement irrespective of ECG and other diagnostic findings 20 [ ]III.General contraindications and/or Inappropriate clinical situations for Observational Care in patients with Myocardial Infarction, when ANY ONE of the following is required: [ ]a) Prediction of prolongation of LOS based on ANY ONE of the following may be considered as a contraindication for observational care 2, 3, 4, 5, 6, 7, 8, 9, 10, 11 [ ]i) Age > 65 yrs. [ ]ii) Patient arriving by ambulance [ ]iii) Patient with high acuity [ ]iv) Patient requiring vital sign monitoring [ ]v) Patient on IV medication [ ]b) Systolic blood pressures greater than or equal to 180mmHg 3,12 [ ]c) Patient with altered mental status including delirium and other alteration of consciousness, (3) [ ]d) Patient whose discharge disposition will be to a fdc home or rehabilitation home should not be managed in Emergency Department Observation Unit. CMS rule requires 3 days hospital stay before such placement. 3,13 [ ]e) Patient with failure to thrive due to broad array of etiologies 3 ,16,17 [ ]f) Inability to ambulate 3,14 Extended stay beyond goal length of stay may be needed for (1)(18)(20)(24)(25): [ ]a) Hemodynamic instability, persisting symptoms after intensive medical management, or recurring severe, prolonged symptoms [ ]b) Intravascular procedural complications such as acute vessel closure, stent thrombosis, stent malposition, or vessel dissection (26)(27)(28) [ ]c) Extravascular procedural complications such as retroperitoneal hematoma , pericardial effusion, or cardiac tamponade [ ]d) Entry site complications causing bleeding, hematoma or distal ischemia and requiring ongoing monitoring, surgical repair or surgical thrombectomy. Dangerous arrhythmia [ ]e) Complicated percutaneous coronary intervention (e.g., unsuccessful percutaneous coronary intervention or percutaneous coronary intervention of non- pala vessel) [ ]f) Urgent or emergent surgery for complications of OH (e.g., ventricular rupture, valvular insufficiency) [ ]g) Surgical revascularization via coronary artery bypass graft [ ]h) Heart failure (e.g., pulmonary edema) [ ]i) Unstable pulmonary comorbidities, including COPD or pneumonia (31) [ ]j) Acute renal failure The original [employer] content created by [employer] has been revised. The portions of the content which have been revised are identified through the use of italic text or in bold, and [facility] [employer] has neither reviewed nor approved the modified material. All other unmodified content is copyright [facility] [employer] Please see references footnoted in the original [facility] edition 2016 Admission Criteria Met?: Yes [place] DC Mar 09, 2017 04:27
== END 2017-03-08 15:20 | disposition home or self-care (01) | DRG 248 ==
LOC: 2 NORTH 01:00
PROVIDERS: ADMIT Internal Medicine; ATTEND Internal Medicine
PROC: 02703DZ Dilation of Coronary Artery, One Artery with Intraluminal Device, Percutaneous Approach (ICD-10-PCS; principal; 2017-03-07)
PROC: B2111ZZ Fluoroscopy of Multiple Coronary Arteries using Low Osmolar Contrast (ICD-10-PCS; 2017-03-07)
PROC: B2151ZZ Fluoroscopy of Left Heart using Low Osmolar Contrast (ICD-10-PCS; 2017-03-07)
PROC: 4A023N7 Measurement of Cardiac Sampling and Pressure, Left Heart, Percutaneous Approach (ICD-10-PCS; 2017-03-07)
DX: I21.4 Non-ST elevation (NSTEMI) myocardial infarction (principal); I50.21 Acute systolic (congestive) heart failure; N17.9 Acute kidney failure, unspecified; J44.9 Chronic obstructive pulmonary disease, unspecified; I25.10 Atherosclerotic heart disease of native coronary artery without angina pectoris; I25.5 Ischemic cardiomyopathy; N40.0 Benign prostatic hyperplasia without lower urinary tract symptoms; Z82.49 Family history of ischemic heart disease and other diseases of the circulatory system; Z98.61 Coronary angioplasty status; Z88.5 Allergy status to narcotic agent; E78.5 Hyperlipidemia, unspecified
CPT/HCPCS: 36415; 80048; 80061; 82553; 83735; 84443; 84484; 85025; 85027; 85347; 85520; 85610; 85730; 92928; 93005; 93458; 94620; C1725; C1769; C1876; C1887; C1892; J1644; J2250; J3010; J3490; J7030; J7060; Q9967; J2001; J3246

== ENCOUNTER → 2017-06-02 | Outpatient (CLI) | payer OTHER, MEDICARE ==
[~2017-06-02] MED LIST: ASPI-482 PO; ATOR40TA PO; CHOL10003 PO; CLOP75TA PO; LISI-338 PO; MULT-246 PO; TAMS0.4C97 PO; UBID1CAP41 PO
--- NOTE | 2017-06-02 15:51 | CARD ---
APPROVED REPORT EXAM: Two-dimensional and M-mode echocardiogram with Doppler and color Doppler. Other Information Quality : AverageHR: 63bpm INDICATION Cardiac Disease: CAD 2D DIMENSIONS RVDd3.2 (2.9-3.5cm)Left Atrium(2D)4.4 (1.6-4.0cm) IVSd1.1 (0.7-1.1cm)Aortic Root(2D)2.7 (2.0-3.7cm) LVDd5.6 (3.9-5.9cm)LVOT Diameter1.9 (1.8-2.4cm) PWd1.1 (0.7-1.1cm)LVDs4.9 (2.5-4.0cm) FS (%) 13.5 %SV44.2 ml LVEF(%)28.4 (>50%) M-Mode DIMENSIONS IVSd1.35 (0.7-1.1cm)LVDd8.11 (4.0-5.6cm) PWd1.18 (0.7-1.1cm)IVSs1.69 cm FS (%) 12 %LVDs7.14 (2.0-3.8cm) PWs1.90 cmLVEF(%)25 (>50%) Aortic Valve AoV Peak Frandy.168.7cm/sAoV VTI37.8cm AO Peak GR.11.4mmHgLVOT Peak Frandy.84.7cm/s AO Mean GR.7mmHg Mitral Valve MV E Iwrvsxpp501.7cm/sMV E Peak Gr.60mmHg MV DECEL [id number] A Grohvgyh22.6cm/s MV THT19ryR/A Ratio2.0 MVA (PHT)4.50cm2 TDI E/Lateral E'11.1E/Medial E'24.1 Pulmonary Valve PV Peak Wuqzgxnp678.9cm/sPV Peak Grad.4mmHg Tricuspid Valve TR P. Zqtgsjpc617se/sRAP [id number] TR Peak Gr.57voDiCTGA35weOd Pulmonary Vein S1 Guepgobr01.1cm/sD2 Fttplnxi55.0cm/s LEFT VENTRICLE The Left Ventricle is mildly dilated. There is borderline concentric left ventricular hypertrophy. Th e ejection fraction is severely impaired. EF 15-20% There is severe global hypokinesis of the left ve ntricle. Tissue Doppler imaging reveals severe left ventricular diastolic dysfunction. RIGHT VENTRICLE The right ventricle is mildly dilated. The right ventricle is borderline hypertrophied. The right jt tricular systolic function is normal. ATRIA The left atrium is mildly dilated. The right atrium is mildly dilated. The interatrial septum is inta ct with no evidence for an atrial septal defect or patent foramen ovale as noted on 2-D or Doppler im aging. AORTIC VALVE The aortic valve is mildly to moderately calcified. Not well visualized. Doppler and Color Flow revea led no significant aortic regurgitation. Hemodynamically significant valvular aortic stenosis cannot be excluded. MITRAL VALVE The mitral valve leaflets are thickened and calcified. There is no evidence of mitral valve prolapse. There is no mitral valve stenosis. Doppler and Color-flow revealed moderate mitral regurgitation. TRICUSPID VALVE The tricuspid valve leaflets are thickened , but open well. Doppler and Color Flow revealed mild to m oderate tricuspid regurgitation. Doppler and Color Flow revealed moderate to severe pulmonary hyperte nsion. Estimated PA pressure 70 mm Hg. There is no tricuspid valve prolapse or vegetation. There is n o tricuspid valve stenosis. PULMONIC VALVE Not well visualized. Doppler and Color Flow revealed no pulmonic valvular regurgitation. There is no pulmonic valvular stenosis. GREAT VESSELS The aortic root is normal in size. IVC was dilated and did not collapse >50% on inspiration. PERICARDIAL EFFUSION There is no pleural effusion. There is no evidence of significant pericardial effusion. Critical Notification Critical Value: No <Conclusion> The ejection fraction is severely impaired. EF 15-20% There is severe global hypokinesis of the left ventricle. Hemodynamically significant valvular aortic stenosis cannot be excluded. Doppler and Color-flow revealed moderate mitral regurgitation. Doppler and Color Flow revealed mild to moderate tricuspid regurgitation. Doppler and Color Flow reve aled moderate to severe pulmonary hypertension. Estimated PA pressure 70 mm Hg.
== END | disposition home or self-care (01) ==
LOC: ECHO 13:46
PROVIDERS: ATTEND Internal Medicine Cardiovascular Disease
DX: I08.1 Rheumatic disorders of both mitral and tricuspid valves (principal); I25.10 Atherosclerotic heart disease of native coronary artery without angina pectoris; I27.20 Pulmonary hypertension, unspecified
CPT/HCPCS: 93306